=== PATIENT | female | born 1975 | race African-American/Black ===

== ENCOUNTER 2019-01-19 15:37 | Inpatient (IN) | payer BC ==
[2019-01-19 17:49] VITALS: BMI 28.9
--- NOTE | 2019-01-19 21:23 | HP ---
COWS - Scale Resting Pulse: 1= [place] 81-100 Sweatin=Flushed/Facial Moisture Restless Observation: 1= Difficult to Sit Still Pupil Size: 1= Pupils >than Normal Bone or Joint Aches: 4=Acute Joint/Muscle Pain Runny Nose/ Eye Tearin= Runny Nose/Eyes GI Upset > 30mins: 3= Vomiting/Diarrhea (diarrhea x 2, vomiting x 1) Tremor Observation: 4= Gross Tremor/Twitching Yawning Observation: 0= None Anxiety or Irritability: 0= None Goose Flesh Skin: 0=Smooth Skin COWS Score: 18 CIWA Score Nausea/Vomitin Muscle Tremors: 4-Moderate,w/Arms Extend Anxiety: 3 Agitation: 3 Paroxysmal Sweats: 2 Orientation: 2-Disoriented Date<2 days Tacttile Disturbances: 0-None Auditory Disturbances: 0-None Visual Disturbances: 0-None Headache: 3-Moderate CIWA-Ar Total Score: 19 - Admission Criteria OASAS Guidelines: Admission for Medically Managed Detox: Requires at least one of the followin. CIWA greater than 12 2. Seizures within the past 24 hours 3. Delirium tremens within the past 24 hours 4. Hallucinations within the past 24 hours 5. Acute intervention needed for co occurring medical disorder 6. Acute intervention needed for co occurring psychiatric disorder 7. Severe withdrawal that cannot be handled at a lower level of care (continued vomiting, continued diarrhea, abnormal vital signs) requiring intravenous medication and/or fluids 8. Admission ROS [facility] Chief Complaint: Heroin and alcohol withdrawal symptoms Allergies/Adverse Reactions: Allergies Allergy/AdvReac Type Severity Reaction Status Date / Time azithromycin AdvReac Severe Verified 01/19/19 21:23 History of Present Illness: 43 years old female with a long history of heroin and alcohol dependence is seeking admission to detox. Patient reports that her last detox was at [facility] and reports insignificant period of sobriety. She has medical history of hypertension and Asthma. She denies suicidal ideation at this time. Exam Limitations: No Limitations - Ebola screening Have you traveled outside of the country in the last 21 days: No (N) Have you had contact with anyone from an Ebola affected area: No Have you been sick,other than usual withdrawal symptoms: No Do you have a fever: No - Review of Systems Constitutional: Chills, Loss of Appetite, Malaise, Night Sweats, Changes in sleep EENT: reports: No Symptoms Reported, Blurred Vision, Sinus Pressure Respiratory: reports: No Symptoms reported Cardiac: reports: No Symptoms Reported GI: reports: Diarrhea, Nausea, Poor Appetite, Poor Fluid Intake, Vomiting, Abdominal cramping : reports: No Symptoms Reported Musculoskeletal: reports: Back Pain, Muscle Pain Integumentary: reports: Dryness, Flushing Neuro: reports: Headache, Tingling, Tremors Endocrine: reports: No Symptoms Reported Hematology: reports: No Symptoms Reported Psychiatric: reports: Anxious, Depressed Other Systems: Reviewed and Negative Patient History - Patient Medical History Hx Anemia: No Hx Asthma: Yes (Albuterol) Hx Chronic Obstructive Pulmonary Disease (COPD): No Hx Cancer: No Hx Cardiac Disorders: No Hx Congestive Heart Failure: No Hx Hypertension: Yes (Enalapril) Hx Hypercholesterolemia: No Hx Pacemaker: No HX Cerebrovascular Accident: No Hx Seizures: No Hx Dementia: No Hx Diabetes: No Hx Gastrointestinal Disorders: No Hx Liver Disease: No Hx Genitourinary Disorders: No Hx Sexually Transmitted Disorders: No Hx Renal Disease (ESRD): No Hx Thyroid Disease: No Hx Human Immunodeficiency Virus (HIV): No (Negative 2018) Hx Hepatitis C: No Hx Depression: Yes (Not on medication) Hx Suicide Attempt: No (Denies suicidal ideation at this time) Hx Bipolar Disorder: Yes (Zoloft) Other Medical History: Anxiety-Xanax - Patient Surgical History Past Surgical History: No Hx Orthopedic Surgery: Yes (RIGHT ANKLE FX 2002) - PPD History Previous Implant?: Yes Documented Results: Negative w/o proof Implanted On Prior [facility] Admission?: No PPD to be Administered?: Yes - Reproductive History Patient is a Female of Child Bearing Age (11 -55 yrs old): Yes LMP comment: A YEAR AGO. MENOPAUSAL Patient : No - Smoking Cessation Smoking history: Current every day smoker Have you smoked in the past 12 months: Yes Aproximately how many cigarettes per day: 30 Hx Chewing Tobacco Use: No Initiated information on smoking cessation: Yes 'Breaking Loose' booklet given: 01/19/19 - Substance & Tx. History Hx Alcohol Use: Yes Hx Substance Use: Yes Substance Use Type: Alcohol, Cocaine, Heroin, Marijuana, Opiates Hx Substance Use Treatment: Yes ([facility]) - Substances abused Alcohol Substance route: Oral Frequency: Daily Amount used: 250oz vodka Age of first use: 14 Date of last use: 01/19/19 Alprazolam (Xanax) Substance route: Oral Frequency: Daily Amount used: 4/2mg Age of first use: 31 Date of last use: 01/26/19 Heroin Substance route: Inhalation Frequency: Daily Amount used: 3 BUNDLES Age of first use: 33 Date of last use: 01/19/19 Family Disease History - Family Disease History Family Disease History: Diabetes: Grandparent, Other: Father (TB) Admission Physical Exam [facility] - Vital Signs Vital Signs: Vital Signs - 24 hr 01/19/19 17:30 Temperature 98.7 F Pulse Rate 89 Respiratory 18 Rate Blood Pressure 151/96 - Physical General Appearance: Yes: Severe Distress, Tremorous, Irritable, Sweating, Anxious HEENTM: Yes: Within Normal Limits Respiratory: Yes: Within Normal Limits, Lungs Clear, Normal Breath Sounds, No Respiratory Distress Neck: Yes: Supple Breast: Yes: Breast Exam Deferred Cardiology: Yes: Regular Rhythm, Tachycardia Abdominal: Yes: Normal Bowel Sounds Genitourinary: Yes: Within Normal Limits Back: Yes: Normal Inspection Musculoskeletal: Yes: Back pain, Muscle Pain, Muscle weakness Extremities: Yes: Tremors Neurological: Yes: Within Normal Limits Integumentary: Yes: Warm, Pale Lymphatic: Yes: Within Normal Limits - Diagnostic (1) Alcohol dependence with uncomplicated withdrawal Current Visit: Yes Status: Acute (2) Cocaine dependence with withdrawal Current Visit: Yes Status: Chronic (3) Opioid dependence with withdrawal Current Visit: Yes Status: Chronic (4) Hypertension Current Visit: Yes Status: Chronic Qualifiers: Hypertension type: essential hypertension Qualified Code(s): I10 - Essential (primary) hypertension (5) Depression Current Visit: Yes Status: Chronic Qualifiers: Depression Type: unspecified Qualified Code(s): F32.9 - Major depressive disorder, single episode, unspecified (6) Anxiety Current Visit: Yes Status: Chronic Cleared for Admission [facility] - Detox or Rehab [facility] Level of Care: Medically Managed Detox Regimen/Protocol: Methadone/Librium Breathalyzer - Breathalyzer Breathalyzer: 0.047 Urine Drug Screen - Test Device Lot number: [id number] Expiration date: 10/01/20 - Control Is test valid?: Yes - Results Drug screen NEGATIVE: No Urine drug screen results: THC-Marijuana, NARESH-Cocaine, MOP-Opiates, MTD- Methadone, BZO-Benzodiazepines Inpatient Rehab Admission - Rehab Decision to Admit Inpatient rehab admission?: No
[2019-01-19] MEDS ORDERED: hydrOXYzine PAMOATE 25 MG CAPSULE (FP) PO PRN (21:40)
[2019-01-19] MEDS ORDERED: MENTHOL/PHENOL 1 EACH UD MM PRN (21:40)
[2019-01-19] MEDS ORDERED: MAGNESIUM HYDROX 2400MG/30ML ORAL SUSPENSION 30 ML CUP PO PRN (21:40)
[2019-01-19] MEDS ORDERED: MAGNESIUM CITRATE 300 ML BOTTLE PO PRN (21:40)
[2019-01-19] MEDS ORDERED: NICOTINE POLACRILEX 2 MG GUM BUC PRN (21:40)
[2019-01-19] MEDS ORDERED: chlordiazePOXIDE HCL 25 MG CAPSULE PO PRN (21:40)
[2019-01-19] MEDS ORDERED: cloNIDine HCL 0.1 MG TABLET PO PRN (21:40)
[2019-01-19] MEDS ORDERED: BISMUTH SUBSALICYLATE 524 MG/30 ML UD PO PRN (21:40)
[2019-01-19] MEDS ORDERED: ACETAMINOPHEN 325 MG TABLET (FP) PO PRN ×2 (21:40)
[2019-01-19] MEDS ORDERED: MAG HYDROX/AL HYDROX/SIMETH 30 ML UNIT-DOSE CUP PO PRN (21:40)
[2019-01-19] MEDS ORDERED: METHADONE HCL 10 MG TABLET (FOR DETOX USE ONLY) PO ONE (23:00)
[2019-01-19] MEDS: chlordiazePOXIDE HCL 25 MG CAPSULE PO SCH (23:12)
[2019-01-19] MEDS: THIAMINE HCL 100 MG TABLET (FP) PO SCH (23:12)
[2019-01-20] MEDS: chlordiazePOXIDE HCL 25 MG CAPSULE PO SCH ×4 (06:10→22:33)
[2019-01-20] MEDS ORDERED: METHADONE HCL 10 MG TABLET (FOR DETOX USE ONLY) PO ONE (10:00)
[2019-01-20] MEDS ORDERED: ENALAPRIL MALEATE 10 MG TABLET (FP) PO SCH (10:00)
[2019-01-20] MEDS ORDERED: ALBUTEROL SO4 8 GM HFA INHALER IH SCH (10:00)
[2019-01-20] MEDS: NICOTINE 21 MG/24 HOURS TOPICAL PATCH TD SCH (10:15)
[2019-01-20] MEDS: PRENATAL VITAMINS W/ FOLIC ACID TABLET (FP) PO SCH (10:15)
--- NOTE | 2019-01-20 10:18 | EKG ---
Test Reason : Blood Pressure : / mmHG Vent. Rate : 071 BPM Atrial Rate : 071 BPM P-R Int : 158 ms QRS Dur : 102 ms QT Int : 438 ms P-R-T Axes : 070 -31 000 degrees QTc Int : 475 ms NORMAL SINUS RHYTHM LEFT AXIS DEVIATION MINIMAL VOLTAGE CRITERIA FOR LVH, MAY BE NORMAL VARIANT ABNORMAL ECG NO PREVIOUS ECGS AVAILABLE Confirmed by CATHLEEN WERNER MD ([id number]) on 01/20/2019 10:18:19 AM Referred By: Confirmed By:CATHLEEN WERNER MD
[2019-01-20] MEDS: IBUPROFEN 400 MG TABLET (FP) PO PRN ×3 (10:19→22:32)
[2019-01-20 10:30] LABS: HEMATOCRIT 34.3 % (32.4-45.2); HEMOGLOBIN 11.5 GM/dL (10.7-15.3); MCH 34.5 pg (25.7-33.7); MCHC 33.4 g/dl (32.0-36.0); MEAN CELL VOLUME 103.1 fl (80-96); MEAN PLT VOLUME 7.2 fl (7.5-11.1); PLATELET COUNT 295 K/MM3 (134-434); RBC 3.32 M/mm3 (3.60-5.2); RDW 12.3 % (11.6-15.6); WHITE BLOOD COUNT 3.8 K/mm3 (4.0-10.0)
[2019-01-20 10:36] LABS: ALBUMIN 3.4 g/dl (3.4-5.0); BILIRUBIN,TOTAL 0.5 mg/dL (0.2-1); CALCIUM 9.6 mg/dL (8.5-10.1); CREATININE 0.5 mg/dL (0.55-1.3); POTASSIUM 4.3 mmol/L (3.5-5.1); TOT PROT 6.6 g/dl (6.4-8.2)
[2019-01-20] MEDS: ENALAPRIL MALEATE PO SCH (10:53)
--- NOTE | 2019-01-20 12:22 | PN ---
S CIWA - CIWA Score Muscle Tremors: 3 Anxiety: 2 Agitation: 0-Normal Activity Paroxysmal Sweats: 2 Orientation: 0-Oriented Tacttile Disturbances: 1-Very Mild Itch/Numbness Auditory Disturbances: 0-None Visual Disturbances: 2-Mild Sensitivity Headache: 0-None Present S COWS - Scale Resting Pulse: 0= [place] 80 or Below Sweatin= Chills/Flushing Restless Observation: 0= Sits Still Pupil Size: 0= Normal to Room Light Bone or Joint Aches: 1= Mild Discomfort Runny Nose/ Eye Tearin= None GI Upset > 30mins: 1= Stomach Cramp Tremor Observation of Outstretched Hands: 2= Slight Tremor Visible Yawning Observation: 1= 1-2x During Session Anxiety or Irritability: 2=Irritable/Anxious Goose Flesh Skin: 3=Piloe[place] COWS Score: 11 S Progress Note (SOAP) Subjective: Tremors, Body Aches, H/A, Sweating, Stomach Cramping, Constipation. Objective: PATIENT A & O X 3. IN NO ACUTE DISTRESS. 01/20/19 12:19 Vital Signs Temperature 98.1 F 01/20/19 09:33 Pulse Rate 74 01/20/19 09:33 Respiratory Rate 18 01/20/19 09:33 Blood Pressure 127/81 01/20/19 09:33 O2 Sat by Pulse Oximetry (%) Laboratory Tests 01/20/19 01/20/19 07:00 07:00 WBC 3.8 L RBC 3.32 L Hgb 11.5 Hct 34.3 MCV 103.1 H MCH 34.5 H MCHC 33.4 RDW 12.3 Plt Count 295 MPV 7.2 L Sodium 139 Potassium 4.3 Chloride 105 Carbon Dioxide 32 Anion Gap 3 L BUN 15 Creatinine 0.5 L Est GFR (CKD-EPI)AfAm 138.36 Est GFR (CKD-EPI)NonAf 119.38 Random Glucose 73 L Calcium 9.6 Total Bilirubin 0.5 AST 28 ALT 34 Alkaline Phosphatase 67 Total Protein 6.6 Albumin 3.4 LABS NOTED. RPR RESULT PENDING. 01/20/19 12:21 Assessment: 01/20/19 12:20 WITHDRAWAL SYMPTOMS. Plan: CONTINUE DETOX. INCREASE DAILY PO FLUID / WATER INTAKE. PRN MOM FOR CONSTIPATION.
[2019-01-20] MEDS ORDERED: cloNIDine HCL 0.1 MG TABLET PO ONE (14:51)
[2019-01-20] MEDS: METHOCARBAMOL 500 MG TABLET PO PRN ×2 (16:31→22:32)
--- NOTE | 2019-01-20 17:56 | CONSULT ---
[facility] Psychiatric Consult - Data Date of interview: 01/20/19 Admission source: [facility] Identifying data: First admission to [facility] for this 43 y/o AA female self- referred for detoxification ( benzodiazepines, cocaine, alcohol, cannabis, opiates). examined at [address] [place] [address]. Patient is , a mother of three, domiciled, unemployed and supported on SSI benefits. Substance Abuse History: Confirmed by patient in this interview. Details in current [facility] report as follows : Smoking history: Current every day smoker. Have you smoked in the past 12 months: Yes. Aproximately how many cigarettes per day: 30. Hx Chewing Tobacco Use: No. Initiated information on smoking cessation: Yes. 'Breaking Loose' booklet given: 01/19/19. - Substance & Tx. History. Hx Alcohol Use: Yes. Hx Substance Use: Yes. Substance Use Type: Alcohol, Cocaine, Heroin, Marijuana, Opiates. Hx Substance Use Treatment: Yes ( [facility]). - Substances abused. Alcohol. Substance route: Oral. Frequency: Daily. Amount used: 250oz vodka. Age of first use: 14. Date of last use: 01/19/19. Alprazolam (Xanax). Substance route: Oral. Frequency: Daily. Amount used: 4/2mg. Age of first use: 31. Date of last use: 01/26/19. Heroin. Substance route: Inhalation. Frequency: Daily. Amount used: 3 BUNDLES. Age of first use: 33. Date of last use: 01/19/19 Medical History: Hypertension, bronchial asthma and a distant history of orthosurgery (fracture of right ankle). Psychiatric History: Patient endorses history of " a couple " of psychiatric hospitalizations ([facility] in [facility] + [facility] + other facilities in [place] in [place]). Diagnosed with Bipolar Disorder + ADHD + OCD. Ms Brewster indicates that she has been prescribed sertraline + risperidone. She has also reported chronic non-adherence to OPD care + medications. Patient has recently dropped out of psychiatric follow-up at the [facility] mental health clinic (six weeks ago). Admits to a remote history of suicide attempt (pill-taking) during [facility] after divorce of parents. Physical/Sexual Abuse/Trauma History: Patient denies. Additional Comment: Urine drug screen results: THC-Marijuana, NARESH-Cocaine, MOP- Opiates, MTD-Methadone, BZO-Benzodiazepines. Noted. Mental Status Exam - Mental Status Exam Alert and Oriented to: Time, Place, Person Cognitive Function: Good Patient Appearance: Well Groomed (tattoos on upper extremities) Mood: Anxious, Apprehensive Affect: Appropriate, Mood Congruent Patient Behavior: Fatigued, Appropriate, Cooperative Speech Pattern: Clear Voice Loudness: Normal Thought Process: Goal Oriented Thought Disorder: Not Present Hallucinations: Denies Suicidal Ideation: Denies Homicidal Ideation: Denies Insight/Judgement: Poor Sleep: Fair Appetite: Good Gait/Station: Normal Psychiatric Findings - Problem List ([place] 1, 2,3) (1) Alcohol dependence with uncomplicated withdrawal Current Visit: Yes Status: Acute (2) Cocaine dependence with withdrawal Current Visit: Yes Status: Chronic (3) Opioid dependence with withdrawal Current Visit: Yes Status: Chronic (4) Cannabis dependence Current Visit: Yes Status: Chronic (5) Substance induced mood disorder Current Visit: Yes Status: Acute (6) History of bipolar disorder Current Visit: Yes Status: Chronic (7) Insomnia Current Visit: Yes Status: Chronic (8) Non-compliance Current Visit: Yes Status: Chronic - Initial Treatment Plan Initial Treatment Plan: Psychoeducation. Sleep hygiene. Detoxification. Patient wants to resume sertraline + risperdal. Made aware of side effectss/benefits of both drugs. Including the risk for sexual dysfunction, galactorrhea, gynecomastia, abnormal involuntary movement, dystonias, akathisia, dyskinesias and cardiovascular adverse events. Ms Brewster gave verbal consent to . Zolft 50 mg po daily + risperdal 0.5 mg po bid. Ordered at patient's request. Observation.
[2019-01-20] MEDS: THIAMINE HCL 100 MG TABLET (FP) PO SCH (22:32)
[2019-01-20] MEDS: risperiDONE 0.5 MG TABLET (FP) PO SCH (22:34)
[2019-01-20] MEDS: MELATONIN 5 MG TABLETS PO PRN (22:34)
[2019-01-20] MEDS: ALBUTEROL SO4 8 GM HFA INHALER IH PRN (23:05)
[2019-01-21] MEDS: chlordiazePOXIDE HCL 25 MG CAPSULE PO SCH ×3 (05:59→17:35)
[2019-01-21] MEDS ORDERED: METHADONE HCL 10 MG TABLET (FOR DETOX USE ONLY) PO ONE (10:00)
[2019-01-21] MEDS: METHOCARBAMOL 500 MG TABLET PO PRN (10:06)
[2019-01-21] MEDS: SERTRALINE HCL 50 MG TABLET (FP) PO SCH (10:06)
[2019-01-21] MEDS: ALBUTEROL SO4 8 GM HFA INHALER IH PRN ×2 (10:07→20:58)
[2019-01-21] MEDS: PRENATAL VITAMINS W/ FOLIC ACID TABLET (FP) PO SCH (10:07)
[2019-01-21] MEDS: IBUPROFEN 400 MG TABLET (FP) PO PRN (10:07)
[2019-01-21] MEDS: risperiDONE 0.5 MG TABLET (FP) PO SCH ×2 (10:08→21:01)
[2019-01-21] MEDS: ENALAPRIL MALEATE PO SCH (10:08)
[2019-01-21] MEDS: NICOTINE 21 MG/24 HOURS TOPICAL PATCH TD SCH (11:54)
--- NOTE | 2019-01-21 15:09 | PN ---
[facility] CIWA - CIWA Score Nausea/Vomitin-Mild Nausea/No Vomiting Muscle Tremors: 2 Anxiety: 2 Agitation: 2 Paroxysmal Sweats: 1-Minimal Palms Moist Orientation: 1-Uncertain about Date Tacttile Disturbances: 0-None Auditory Disturbances: 0-None Visual Disturbances: 0-None Headache: 0-None Present CIWA-Ar Total Score: 9 [facility] COWS - Scale Resting Pulse: 1= [place] 81-100 Sweatin= Chills/Flushing Restless Observation: 0= Sits Still Pupil Size: 0= Normal to Room Light Bone or Joint Aches: 1= Mild Discomfort Runny Nose/ Eye Tearin= Nasal Congestion GI Upset > 30mins: 1= Stomach Cramp Tremor Observation of Outstretched Hands: 1= Tremor [place], Not Seen Yawning Observation: 1= 1-2x During Session Anxiety or Irritability: 1=Feels Anxious/Irritable Goose Flesh Skin: 0=Smooth Skin COWS Score: 8 [facility] Progress Note (SOAP) Subjective: long history of asthma wheezing bilaterally rescue pump + nebulizer feeling better with mild chest tightness begin predinson 10 mg po bid Objective: 01/21/19 15:08 Vital Signs Temperature 98.3 F 01/21/19 13:26 Pulse Rate 97 H 01/21/19 13:26 Respiratory Rate 16 01/21/19 13:26 Blood Pressure 131/81 01/21/19 13:26 O2 Sat by Pulse Oximetry (%) Laboratory Last Values WBC 3.8 K/mm3 (4.0-10.0) L 01/20/19 07:00 RBC 3.32 M/mm3 (3.60-5.2) L 01/20/19 07:00 Hgb 11.5 GM/dL (10.7-15.3) 01/20/19 07:00 Hct 34.3 % (32.4-45.2) 01/20/19 07:00 MCV 103.1 fl (80-96) H 01/20/19 07:00 MCH 34.5 pg (25.7-33.7) H 01/20/19 07:00 MCHC 33.4 g/dl (32.0-36.0) 01/20/19 07:00 RDW 12.3 % (11.6-15.6) 01/20/19 07:00 Plt Count 295 K/MM3 (134-434) 01/20/19 07:00 MPV 7.2 fl (7.5-11.1) L 01/20/19 07:00 Sodium 139 mmol/L (136-145) 01/20/19 07:00 Potassium 4.3 mmol/L (3.5-5.1) 01/20/19 07:00 Chloride 105 mmol/L (98-107) 01/20/19 07:00 Carbon Dioxide 32 mmol/L (21-32) 01/20/19 07:00 Anion Gap 3 MMOL/L (8-16) L 01/20/19 07:00 BUN 15 mg/dL (7-18) 01/20/19 07:00 Creatinine 0.5 mg/dL (0.55-1.3) L 01/20/19 07:00 Est GFR (CKD-EPI)AfAm 138.36 01/20/19 07:00 Est GFR (CKD-EPI)NonAf 119.38 01/20/19 07:00 Random Glucose 73 mg/dL (74-106) L 01/20/19 07:00 Calcium 9.6 mg/dL (8.5-10.1) 01/20/19 07:00 Total Bilirubin 0.5 mg/dL (0.2-1) 01/20/19 07:00 AST 28 U/L (15-37) 01/20/19 07:00 ALT 34 U/L (13-61) 01/20/19 07:00 Alkaline Phosphatase 67 U/L (45-117) 01/20/19 07:00 Total Protein 6.6 g/dl (6.4-8.2) 01/20/19 07:00 Albumin 3.4 g/dl (3.4-5.0) 01/20/19 07:00 RPR Titer Nonreactive (NONREACTIVE) 01/20/19 07:00 lab noted Assessment: 01/21/19 15:08 withdrawal sx Plan: continue detox prednison
--- NOTE | 2019-01-21 18:40 | PN ---
S Progress Note Note: Vital Signs Temperature 98.5 F 01/21/19 18:33 Pulse Rate 90 01/21/19 18:33 Respiratory Rate 18 01/21/19 18:33 Blood Pressure 149/88 01/21/19 18:33 O2 Sat by Pulse Oximetry (%) BILATERAL KNEE PAIN D/T OA BENGAY TP BID PRN CONTINUE TO MONITOR
[2019-01-21] MEDS: predniSONE 10 MG TABLET (UD) PO SCH (21:01)
[2019-01-21] MEDS: METHYL SALICYLATE/MENTHOL OINT 30 GM TUBE TP SCH (21:01)
[2019-01-21] MEDS: THIAMINE HCL 100 MG TABLET (FP) PO SCH (21:03)
[2019-01-21] MEDS: MELATONIN 5 MG TABLETS PO PRN (22:18)
[2019-01-21] MEDS: chlordiazePOXIDE HCL 10 MG CAPSULE PO SCH (22:18)
[2019-01-21] MEDS ORDERED: chlordiazePOXIDE HCL 10 MG CAPSULE PO PRN (23:00)
[2019-01-22] MEDS: chlordiazePOXIDE HCL 10 MG CAPSULE PO SCH ×2 (05:32→10:00)
[2019-01-22] MEDS: METHOCARBAMOL 500 MG TABLET PO PRN (05:35)
[2019-01-22] MEDS: IBUPROFEN 400 MG TABLET (FP) PO PRN (05:36)
[2019-01-22 09:15] VITALS: BP 134/91; PULSE 88; TEMP 98
[2019-01-22] MEDS: predniSONE 10 MG TABLET (UD) PO SCH (09:50)
[2019-01-22] MEDS: METHYL SALICYLATE/MENTHOL OINT 30 GM TUBE TP SCH (09:50)
[2019-01-22] MEDS: PRENATAL VITAMINS W/ FOLIC ACID TABLET (FP) PO SCH (09:50)
[2019-01-22] MEDS: SERTRALINE HCL 50 MG TABLET (FP) PO SCH (09:50)
[2019-01-22] MEDS: risperiDONE 0.5 MG TABLET (FP) PO SCH (09:51)
[2019-01-22] MEDS: ENALAPRIL MALEATE PO SCH (09:51)
[2019-01-22] MEDS: NICOTINE 21 MG/24 HOURS TOPICAL PATCH TD SCH (09:52)
[2019-01-22] MEDS ORDERED: METHADONE HCL 10 MG TABLET (FOR DETOX USE ONLY) PO ONE (10:00)
--- NOTE | 2019-01-22 19:07 | PN ---
[facility] CIWA - CIWA Score Nausea/Vomitin-No Nausea/No Vomiting Muscle Tremors: None Anxiety: 0-No Anxiety, at Ease Agitation: 1-Slight > Activity Paroxysmal Sweats: No Perspiration Orientation: 0-Oriented Tacttile Disturbances: 0-None Auditory Disturbances: 0-None Visual Disturbances: 0-None Headache: 0-None Present CIWA-Ar Total Score: 1 [facility] COWS - Scale Resting Pulse: 1= [place] 81-100 Sweatin= No chills or Flushing Restless Observation: 1= Difficult to Sit Still Pupil Size: 0= Normal to Room Light Bone or Joint Aches: 0= None Runny Nose/ Eye Tearin= None GI Upset > 30mins: 0= None Tremor Observation of Outstretched Hands: 0= None Yawning Observation: 0= None Anxiety or Irritability: 0= None Goose Flesh Skin: 0=Smooth Skin COWS Score: 2 [facility] Progress Note (SOAP) Subjective: Patient reports that current Withdrawal / Detox symptoms are minimal and reports that she feels well overall at this time. Objective: PATIENT A & O X 3, OBSERVED AMBULATING ON UNIT UNASSISTED. IN NO ACUTE DISTRESS. 01/22/19 19:05 Vital Signs Temperature 98.0 F 01/22/19 09:15 Pulse Rate 88 01/22/19 09:15 Respiratory Rate 18 01/22/19 09:15 Blood Pressure 134/91 01/22/19 09:15 O2 Sat by Pulse Oximetry (%) Laboratory Tests 01/20/19 01/20/19 01/20/19 07:00 07:00 07:00 WBC 3.8 L RBC 3.32 L Hgb 11.5 Hct 34.3 MCV 103.1 H MCH 34.5 H MCHC 33.4 RDW 12.3 Plt Count 295 MPV 7.2 L Sodium 139 Potassium 4.3 Chloride 105 Carbon Dioxide 32 Anion Gap 3 L BUN 15 Creatinine 0.5 L Est GFR (CKD-EPI)AfAm 138.36 Est GFR (CKD-EPI)NonAf 119.38 Random Glucose 73 L Calcium 9.6 Total Bilirubin 0.5 AST 28 ALT 34 Alkaline Phosphatase 67 Total Protein 6.6 Albumin 3.4 RPR Titer Nonreactive LABS NOTED. Assessment: 01/22/19 19:05 COMPLETION OF DETOX REGIMEN. 01/22/19 19:06 Plan: SINCE PATIENT REPORTS THAT CURRENT WITHDRAWAL / DETOX SYMPTOMS ARE MINIMAL IN DEGREE AND THAT SHE FEELS WELL OVERALL, AT PATIENTS REQUEST, SHE WAS GRANTED AN EARLY DISCHARGE FROM DETOX UNIT TODAY SO THAT SHE MAY LEAVE TO ATTEND TO A FAMILY EMERGENCY.
--- NOTE | 2019-01-22 19:12 | DS ---
[facility] Detox Discharge Summary Admission Date: 01/19/19 Discharge Date: 01/22/19 - History Present History: Alcohol Dependence, Cocaine Dependence, Opioid Dependence Additional Comments: PATIENT REPORTS THAT CURRENT WITHDRAWAL / DETOX SYMPTOMS ARE MINIMAL IN DEGREE AND THAT SHE FEELS WELL OVERALL AT TIME OF DISCHARGE FROM DETOX UNIT. PATIENT GOING HOME TO ATTEND TO URGENT FAMILY EMERGENCY AT THIS TIME. PATIENT WILL CONSIDER [facility] ([place], [place]) FOR LATER TIME AFTER FAMILY ISSUE IS SETTLED. PATIENT ALSO ADVISED TO CONSIDER LOCAL 12-STEP / NA / AA OUTPATIENT SUPPORT GROUP PROGRAM FOR AFTERCARE. PATIENT VERBALIZED UNDERSTANDING OF RECOMMENDATION. PATIENT WAS DISCHARGED FORM DETOX UNIT IN STABLE MEDICAL CONDITION. Pertinent Past History: HTN, Asthma, History Of Depression, History Of Bipolar Disorder, Anxiety. - Physical Exam Results Vital Signs: Vital Signs Temperature 98.0 F 01/22/19 09:15 Pulse Rate 88 01/22/19 09:15 Respiratory Rate 18 01/22/19 09:15 Blood Pressure 134/91 01/22/19 09:15 O2 Sat by Pulse Oximetry (%) Pertinent Admission Physical Exam Findings: WITHDRAWAL SYMPTOMS. Laboratory Tests 01/20/19 01/20/19 01/20/19 07:00 07:00 07:00 WBC 3.8 L RBC 3.32 L Hgb 11.5 Hct 34.3 MCV 103.1 H MCH 34.5 H MCHC 33.4 RDW 12.3 Plt Count 295 MPV 7.2 L Sodium 139 Potassium 4.3 Chloride 105 Carbon Dioxide 32 Anion Gap 3 L BUN 15 Creatinine 0.5 L Est GFR (CKD-EPI)AfAm 138.36 Est GFR (CKD-EPI)NonAf 119.38 Random Glucose 73 L Calcium 9.6 Total Bilirubin 0.5 AST 28 ALT 34 Alkaline Phosphatase 67 Total Protein 6.6 Albumin 3.4 RPR Titer Nonreactive LABS NOTED. - Treatment Hospital Course: Detox Protocol Followed, Detoxed Safely, Responded well, Discharged Condition Good Patient has Accepted a Rehab Referral to: [facility] ([place], [place]) ( ON LATER DATE). - Medication Discharge Medications: Ambulatory Orders Albuterol Sulfate [Albuterol Sulfate Hfa] 8.5 gm IH PRN PRN 01/19/19 Prednisone 10 mg PO BID 01/19/19 Sertraline HCl [Zoloft] 100 mg PO DAILY 01/19/19 Albuterol Sulfate Inhaler - [Ventolin Hfa Inhaler -] 1 - 2 inh PO Q4H PRN #1 inhaler 01/22/19 Enalapril Maleate [Vasotec -] 15 mg PO DAILY 30 Days #30 tablet 01/22/19 - Diagnosis (1) Alcohol dependence with uncomplicated withdrawal Status: Acute (2) Anxiety Status: Chronic (3) Cocaine dependence with withdrawal Status: Chronic (4) Depression Status: Chronic Qualifiers: Depression Type: unspecified Qualified Code(s): F32.9 - Major depressive disorder, single episode, unspecified (5) Hypertension Status: Chronic Qualifiers: Hypertension type: essential hypertension Qualified Code(s): I10 - Essential (primary) hypertension (6) Opioid dependence with withdrawal Status: Chronic - AMA Did Patient Leave Against Medical Advice: No
[2019-01-22] MEDS ORDERED: chlordiazePOXIDE HCL 10 MG CAPSULE PO SCH (23:00)
[2019-01-23] MEDS ORDERED: METHADONE HCL 5 MG TABLET (FOR DETOX USE ONLY) PO ONE (06:00)
== END 2019-01-22 10:43 | disposition home or self-care (01) | DRG 773 ==
LOC: YASAS 15:37 → Y3N 22:02
PROVIDERS: ADMIT Surgery; ATTEND Surgery
PROC: HZ2ZZZZ Detoxification Services for Substance Abuse Treatment (ICD-10-PCS; principal; 2019-01-19)
DX: F10.230 Alcohol dependence with withdrawal, uncomplicated (principal); F11.23 Opioid dependence with withdrawal; F14.20 Cocaine dependence, uncomplicated; F12.20 Cannabis dependence, uncomplicated; F31.9 Bipolar disorder, unspecified; F41.9 Anxiety disorder, unspecified; F19.24 Other psychoactive substance dependence with psychoactive substance-induced mood disorder; I10 Essential (primary) hypertension; M17.0 Bilateral primary osteoarthritis of knee; Z91.19 Patient's noncompliance with other medical treatment and regimen
CPT/HCPCS: 36415; 80053; 85027; 86593; 93005; 93010; J0735

== ENCOUNTER 2019-07-18 12:41 | Inpatient (IN) | payer OTHER ==
[2019-07-18 14:17] VITALS: BMI 32.1
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
[2019-07-18] MEDS ORDERED: MAGNESIUM HYDROX 2400MG/30ML ORAL SUSPENSION 30 ML CUP PO PRN (15:14)
[2019-07-18] MEDS ORDERED: ACETAMINOPHEN 325 MG TABLET (FP) PO PRN (15:14)
[2019-07-18] MEDS ORDERED: MAG HYDROX/AL HYDROX/SIMETH 30 ML UNIT-DOSE CUP PO PRN (15:14)
[2019-07-18] MEDS ORDERED: LORazepam 1 MG TABLET PO PRN (15:14)
[2019-07-18] MEDS ORDERED: ONDANSETRON *ODT* 4 MG TABLET SL PRN (15:14)
[2019-07-18] MEDS ORDERED: MAGNESIUM CITRATE 300 ML BOTTLE PO PRN (15:14)
[2019-07-18] MEDS ORDERED: BISMUTH SUBSALICYLATE 524 MG/30 ML UD PO PRN (15:14)
[2019-07-18] MEDS ORDERED: QUEtiapine FUMARATE 100 MG TABLET (FP) PO PRN (15:14)
[2019-07-18] MEDS ORDERED: MENTHOL/PHENOL 1 EACH UD MM PRN ×2 (15:14)
[2019-07-18] MEDS: LORazepam 2 MG TABLET PO SCH ×2 (16:25→22:01)
[2019-07-18] MEDS: predniSONE 20 MG TABLET (UD) PO SCH (16:25)
[2019-07-18] MEDS: cloNIDine HCL 0.1 MG TABLET PO PRN (16:28)
[2019-07-18] MEDS: NICOTINE 14 MG/24 HOURS TOPICAL PATCH TD SCH (16:28)
[2019-07-18] MEDS: METHOCARBAMOL 500 MG TABLET PO PRN (17:02)
[2019-07-18] MEDS: IBUPROFEN 400 MG TABLET (FP) PO PRN ×2 (17:03→23:47)
[2019-07-18] MEDS: hydrOXYzine PAMOATE 50 MG CAPSULE (FP) PO PRN (18:29)
[2019-07-18] MEDS: ACETAMINOPHEN 325 MG TABLET (FP) PO PRN (21:24)
[2019-07-18] MEDS: THIAMINE HCL 100 MG TABLET (FP) PO SCH (22:01)
[2019-07-18] MEDS: MELATONIN 5 MG TABLETS PO PRN (22:02)
[2019-07-19] MEDS: hydrOXYzine PAMOATE 50 MG CAPSULE (FP) PO PRN ×3 (00:42→19:51)
[2019-07-19] MEDS: METHOCARBAMOL 500 MG TABLET PO PRN ×2 (00:42→19:51)
[2019-07-19] MEDS: LORazepam 2 MG TABLET PO SCH ×2 (05:23→10:12)
[2019-07-19] MEDS: cloNIDine HCL 0.1 MG TABLET PO PRN ×2 (08:50→17:00)
[2019-07-19] MEDS: NICOTINE 14 MG/24 HOURS TOPICAL PATCH TD SCH (10:11)
[2019-07-19] MEDS: ENALAPRIL MALEATE 10 MG TABLET (FP) PO SCH (10:12)
[2019-07-19] MEDS: PRENATAL VITAMINS W/ FOLIC ACID TABLET (FP) PO SCH (10:12)
[2019-07-19] MEDS: predniSONE 20 MG TABLET (UD) PO SCH (10:12)
[2019-07-19] MEDS: NICOTINE POLACRILEX 2 MG GUM BUC PRN (10:14)
--- NOTE | 2019-07-19 11:06 | PN ---
S CIWA - CIWA Score Nausea/Vomitin-Mild Nausea/No Vomiting Muscle Tremors: 3 Anxiety: 4-Mod. Anxious/Guarded Agitation: 2 Paroxysmal Sweats: 2 Orientation: 1-Uncertain about Date (date of week) Tacttile Disturbances: 1-Very Mild Itch/Numbness Auditory Disturbances: 0-None Visual Disturbances: 0-None Headache: 2-Mild CIWA-Ar Total Score: 16 BHS Progress Note (SOAP) Subjective: 43 years old female admitted on 07/18/19 for alcohol and benzo withdrawal sx management treated with ativan detox regimen patient prefers librium detox regimen " I always use librium" "ativan does not work for me" change ativan to librium detox regimen patient reported long history of anxiety taking psychotropic medication psychiatrist referral in placed report G-I distress taking over the counter antiacid medication at home discontinue motrin begin pepcide Objective: 07/19/19 11:05 Vital Signs Temperature 97.9 F 07/19/19 09:14 Pulse Rate 95 H 07/19/19 09:14 Respiratory Rate 18 07/19/19 09:14 Blood Pressure 138/98 07/19/19 09:14 O2 Sat by Pulse Oximetry (%) 07/19/19 11:05 lab pending Assessment: 07/19/19 11:05 alcohol and benzo withdrawal sx Plan: continue librium detox regimen
[2019-07-19] MEDS: FAMOTIDINE 20 MG TABLET PO SCH ×2 (11:55→21:14)
[2019-07-19] MEDS: chlordiazePOXIDE HCL 10 MG CAPSULE PO SCH ×3 (11:55→23:04)
[2019-07-19 12:14] LABS: ALBUMIN 3.6 g/dl (3.4-5.0); BILIRUBIN,TOTAL 0.3 mg/dL (0.2-1); BLOOD UREA NITROGEN 28.2 mg/dL (7-18); CALCIUM 9.5 mg/dL (8.5-10.1); CREATININE 0.8 mg/dL (0.55-1.3); POTASSIUM 4.2 mmol/L (3.5-5.1); TOT PROT 7.2 g/dl (6.4-8.2)
[2019-07-19 12:17] LABS: HEMATOCRIT 37.4 % (32.4-45.2); HEMOGLOBIN 12.4 GM/dL (10.7-15.3); MCH 32.5 pg (25.7-33.7); MCHC 33.2 g/dl (32.0-36.0); MEAN PLT VOLUME 6.7 fl (7.5-11.1); PLATELET COUNT 431 K/MM3 (134-434); RBC 3.81 M/mm3 (3.60-5.2); RDW 13.8 % (11.6-15.6); WHITE BLOOD COUNT 6.6 K/mm3 (4.0-10.0)
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
[2019-07-19] MEDS: ACETAMINOPHEN 325 MG TABLET (FP) PO PRN ×2 (13:42→21:16)
[2019-07-19] MEDS: QUEtiapine FUMARATE 50 MG TABLET PO SCH (13:43)
[2019-07-19] MEDS ORDERED: hydrOXYzine PAMOATE 25 MG CAPSULE (FP) PO ONE (18:00)
--- NOTE | 2019-07-19 19:45 | PN ---
BHS Progress Note Note: Last Vital Signs Temp Pulse Resp BP Pulse Ox 97.3 F L 105 H 20 129/80 07/19/19 17:46 07/19/19 17:46 07/19/19 17:46 07/19/19 17:46 Assessed the pt. on the unit. Pt. c/o rapid heart rate. Pt. alert and oriented x 3. Denies CP. She is reports feeling anxious. Wheezing to lower left lobe. No signs of respiratory distress noted or reported. VS repeated and as follows: 123/83 BP, 97 P, 98.1 T Plan: Vistaril 50mg Albuterol Stat EKG ordered
[2019-07-19] MEDS: ALBUTEROL SO4 8 GM HFA INHALER IH PRN (19:52)
[2019-07-19] MEDS: TOLNAFTATE 1% CREAM 15 GM TUBE TP SCH (21:13)
[2019-07-19] MEDS: DIVALPROEX SODIUM 500 MG TABLET E.C. PO SCH (21:14)
[2019-07-19] MEDS: THIAMINE HCL 100 MG TABLET (FP) PO SCH (21:15)
[2019-07-19] MEDS: MELATONIN 5 MG TABLETS PO PRN (21:15)
[2019-07-19] MEDS ORDERED: QUEtiapine FUMARATE 200 MG TABLET PO SCH (22:00)
[2019-07-20] MEDS: chlordiazePOXIDE HCL 25 MG CAPSULE PO PRN ×3 (00:11→17:04)
[2019-07-20] MEDS: NICOTINE POLACRILEX 2 MG GUM BUC PRN (00:12)
[2019-07-20] MEDS ORDERED: LORazepam 1 MG TABLET PO SCH (05:00)
[2019-07-20] MEDS: cloNIDine HCL 0.1 MG TABLET PO PRN ×2 (06:36→21:17)
[2019-07-20] MEDS: chlordiazePOXIDE HCL 10 MG CAPSULE PO SCH ×3 (06:46→21:14)
[2019-07-20] MEDS: ACETAMINOPHEN 325 MG TABLET (FP) PO PRN ×2 (07:11→17:03)
--- NOTE | 2019-07-20 09:07 | PN ---
BHS CIWA - CIWA Score Nausea/Vomitin-Mild Nausea/No Vomiting Muscle Tremors: 3 Anxiety: 4-Mod. Anxious/Guarded Agitation: 2 Paroxysmal Sweats: 1-Minimal Palms Moist Orientation: 0-Oriented Tacttile Disturbances: 0-None Auditory Disturbances: 0-None Visual Disturbances: 0-None Headache: 2-Mild CIWA-Ar Total Score: 13 BHS Progress Note (SOAP) Subjective: 43 years old female admitted on 07/18/19 for alcohol and benzo withdrawal sx management treated with librium detox regimen patient is
[2019-07-20] MEDS: FAMOTIDINE 20 MG TABLET PO SCH ×2 (10:05→21:14)
[2019-07-20] MEDS: predniSONE 20 MG TABLET (UD) PO SCH (10:07)
[2019-07-20] MEDS: NICOTINE 14 MG/24 HOURS TOPICAL PATCH TD SCH (10:07)
[2019-07-20] MEDS: DIVALPROEX SODIUM 500 MG TABLET E.C. PO SCH ×2 (10:07→21:15)
[2019-07-20] MEDS: PRENATAL VITAMINS W/ FOLIC ACID TABLET (FP) PO SCH (10:08)
[2019-07-20] MEDS: ENALAPRIL MALEATE 10 MG TABLET (FP) PO SCH (10:09)
[2019-07-20] MEDS: QUEtiapine FUMARATE 50 MG TABLET PO SCH (10:09)
[2019-07-20] MEDS: hydrOXYzine PAMOATE 50 MG CAPSULE (FP) PO PRN ×3 (10:10→23:33)
[2019-07-20] MEDS: METHOCARBAMOL 500 MG TABLET PO PRN ×3 (10:10→23:33)
--- NOTE | 2019-07-20 10:45 | EKG ---
Test Reason : Blood Pressure : / mmHG Vent. Rate : 094 BPM Atrial Rate : 094 BPM P-R Int : 144 ms QRS Dur : 098 ms QT Int : 388 ms P-R-T Axes : 071 -40 026 degrees QTc Int : 485 ms NORMAL SINUS RHYTHM POSSIBLE LEFT ATRIAL ENLARGEMENT LEFT AXIS DEVIATION LEFT VENTRICULAR HYPERTROPHY CANNOT RULE OUT SEPTAL INFARCT , AGE UNDETERMINED ABNORMAL ECG Confirmed by MD CHRISSY, PREETHI ([id number]) on 07/20/2019 10:45:22 AM Referred By: Confirmed By:PREETHI LOWE MD
[2019-07-20] MEDS: TOLNAFTATE 1% CREAM 15 GM TUBE TP SCH ×2 (11:09→21:18)
[2019-07-20] MEDS ORDERED: ALBUTEROL SO4 2.5/IPRATROPIUM 0.5 INH SOL 3 ML VIAL.NEB. NEB PRN (11:10)
--- NOTE | 2019-07-20 11:31 | PN ---
S CIWA - CIWA Score Nausea/Vomitin-No Nausea/No Vomiting Muscle Tremors: 1-None Visible, but Guild Anxiety: 3 Agitation: 2 Paroxysmal Sweats: No Perspiration Orientation: 0-Oriented Tacttile Disturbances: 1-Very Mild Itch/Numbness Auditory Disturbances: 0-None Visual Disturbances: 0-None Headache: 2-Mild CIWA-Ar Total Score: 9 BHS Progress Note (SOAP) Subjective: alert,irritable,anxious ,interrupted sleep,mild expiratory wheezing,interrupted sleep Objective: 07/20/19 11:24 Vital Signs Temperature 98.7 F 07/20/19 09:17 Pulse Rate 87 07/20/19 09:17 Respiratory Rate 18 07/20/19 09:17 Blood Pressure 132/88 07/20/19 09:17 O2 Sat by Pulse Oximetry (%) Laboratory Last Values WBC 6.6 K/mm3 (4.0-10.0) 07/19/19 08:15 RBC 3.81 M/mm3 (3.60-5.2) 07/19/19 08:15 Hgb 12.4 GM/dL (10.7-15.3) 07/19/19 08:15 Hct 37.4 % (32.4-45.2) 07/19/19 08:15 MCV 98.0 fl (80-96) H 07/19/19 08:15 MCH 32.5 pg (25.7-33.7) 07/19/19 08:15 MCHC 33.2 g/dl (32.0-36.0) 07/19/19 08:15 RDW 13.8 % (11.6-15.6) D 07/19/19 08:15 Plt Count 431 K/MM3 (134-434) D 07/19/19 08:15 MPV 6.7 fl (7.5-11.1) L 07/19/19 08:15 Sodium 140 mmol/L (136-145) 07/19/19 08:15 Potassium 4.2 mmol/L (3.5-5.1) 07/19/19 08:15 Chloride 106 mmol/L (98-107) 07/19/19 08:15 Carbon Dioxide 29 mmol/L (21-32) 07/19/19 08:15 Anion Gap 5 MMOL/L (8-16) L 07/19/19 08:15 BUN 28.2 mg/dL (7-18) H 07/19/19 08:15 Creatinine 0.8 mg/dL (0.55-1.3) 07/19/19 08:15 Est GFR (CKD-EPI)AfAm 105.39 07/19/19 08:15 Est GFR (CKD-EPI)NonAf 90.93 07/19/19 08:15 Random Glucose 90 mg/dL (74-106) 07/19/19 08:15 Calcium 9.5 mg/dL (8.5-10.1) 07/19/19 08:15 Total Bilirubin 0.3 mg/dL (0.2-1) 07/19/19 08:15 AST 31 U/L (15-37) 07/19/19 08:15 ALT 44 U/L (13-61) 07/19/19 08:15 Alkaline Phosphatase 74 U/L (45-117) 07/19/19 08:15 Total Protein 7.2 g/dl (6.4-8.2) 07/19/19 08:15 Albumin 3.6 g/dl (3.4-5.0) 07/19/19 08:15 POC Urine HCG, Qual Negative 07/18/19 14:30 RPR Titer Nonreactive (NONREACTIVE) 07/19/19 08:15 HIV 1&2 Antibody Screen Negative 07/19/19 08:15 HIV P24 Antigen Negative 07/19/19 08:15 Assessment: 07/20/19 11:27 withdrawal symptom,continue detox librium regimen,duoneb nebulizer,encourage oral fluid,continue albuterol inhaler,prednidone 20 mgs po daily,encourage oral fluid Plan: continue detox,encourage oral fluid,psychiatric reevaluation
--- NOTE | 2019-07-20 15:21 | PN ---
Psychiatric Progress Note Vital Signs: Vital Signs Period Temp Pulse Resp BP Sys/Solo Pulse Ox Last 24 Hr 97.1 F-98.7 F 87-105 18-20 123-134/80-94 Date of Session: 07/20/19 Chief Complaint:: " I want my sleep medications earlier than 10 pm ". HPI: Day 4 of detoxification. Uneventful hospital course. Psychiatric follow-up is requested to address patient's request for a change of medications schedule ( HS medications to be given at 9 pm instead of 10 pm). ROS: Patient is ambulatory. Visible, sociable. Complaint : insomnia. Current Medications: Active Medications Generic Name Dose Route Start Last Admin Trade Name Freq PRN Reason Stop Dose Admin Acetaminophen 650 mg 07/18/19 15:14 07/20/19 07:11 Tylenol - PO 650 mg Q6H PRN Administration PAIN LEVEL 4 - 6 Acetaminophen 650 mg 07/18/19 15:14 Tylenol - PO Q6H PRN FEVER Al Hydroxide/Mg Hydroxide 30 ml 07/18/19 15:14 07/19/19 00:45 Mylanta Oral Suspension - PO 30 ml Q6H PRN Administration DYSPEPSIA Albuterol Sulfate 1 - 2 puff 07/18/19 15:18 07/19/19 19:52 Ventolin Hfa Inhaler - IH 1 puff Q4H PRN Administration SHORT OF BREATH/WHEEZING Albuterol/Ipratropium 1 amp 07/20/19 11:10 Duoneb - NEB Q6H PRN SHORTNESS OF BREATH Bismuth Subsalicylate 524 mg 07/18/19 15:14 Pepto-Bismol - PO Q1H PRN DIARRHEA Chlordiazepoxide HCl 10 mg 07/22/19 05:00 Librium - PO 07/22/19 05:01 ONCE ONE Chlordiazepoxide HCl 10 mg 07/21/19 05:00 Librium - PO 07/21/19 17:01 Q12H DARIN Chlordiazepoxide HCl 10 mg 07/20/19 05:00 07/20/19 13:25 Librium - PO 07/20/19 21:01 10 mg Q8H DARIN Administration Chlordiazepoxide HCl 25 mg 07/19/19 10:21 07/20/19 06:36 Librium - PO 07/20/19 23:59 25 mg Q4H PRN Administration WITHDRAWAL(CONT SUBST) Chlordiazepoxide HCl 10 mg 07/21/19 00:01 Librium - PO 07/21/19 23:59 Q6H PRN WITHDRAWAL(CONT SUBST) Clonidine 0.1 mg 07/18/19 15:22 07/20/19 06:36 Catapres - PO 0.1 mg BID PRN Administration WITHDRAWAL(CONT SUBST) Divalproex Sodium 500 mg 07/19/19 22:00 07/20/19 10:07 Depakote - PO 500 mg BID DARIN Administration Enalapril Maleate 15 mg 07/19/19 10:00 07/20/19 10:09 Vasotec - PO 15 mg DAILY DARIN Administration Eucalyptus/Menthol/Phenol/Sorbitol 1 each 07/18/19 15:14 Cepastat Lozenge - MM 07/24/19 15:15 Q4H PRN SORE THROAT Eucalyptus/Menthol/Phenol/Sorbitol 1 each 07/18/19 15:14 Cepastat Lozenge - MM Q4H PRN SORE THROAT Famotidine 20 mg 07/19/19 12:00 07/20/19 10:05 Pepcid - PO 20 mg BID DARIN Administration Hydroxyzine Pamoate 50 mg 07/18/19 15:14 07/20/19 10:10 Vistaril - PO 07/24/19 15:16 50 mg Q6H PRN Administration For Anxiety Magnesium Citrate 300 ml 07/18/19 15:14 Citroma - PO Q48H PRN CONSTIPATION Magnesium Hydroxide 30 ml 07/18/19 15:14 Milk Of Magnesia - PO PRN PRN CONSTIPATION Melatonin 5 mg 07/18/19 15:14 07/19/19 21:15 Melatonin PO 5 mg HS PRN Administration INSOMNIA Methocarbamol 500 mg 07/18/19 15:14 07/20/19 10:10 Robaxin - PO 07/24/19 15:15 500 mg Q6H PRN Administration MUSCLE SPASMS Nicotine 14 mg 07/18/19 15:30 07/20/19 10:07 Nicoderm Patch - TD Not Given DAILY DARIN Nicotine Polacrilex 2 mg 07/18/19 15:14 07/20/19 00:12 Nicorette Gum - BUC 2 mg Q2H PRN Administration NICOTINE REPLACEMENT RX Ondansetron HCl 4 mg 07/18/19 15:14 Zofran Odt - SL 07/24/19 15:17 Q12H PRN Nausea/Vomiting Prednisone 20 mg 07/18/19 15:30 07/20/19 10:07 Deltasone - PO 07/21/19 23:59 20 mg DAILY DARIN Administration Multivit/Folic Acid/Iron 1 tab 07/19/19 10:00 07/20/19 10:08 Vitamins (Sjr) - PO 1 tab DAILY DARIN Administration Quetiapine Fumarate 50 mg 07/19/19 14:00 07/20/19 10:09 Seroquel - PO 50 mg DAILY DARIN Administration Quetiapine Fumarate 200 mg 07/20/19 21:00 Seroquel - PO HS@2100 DARIN Suvorexant 5 mg 07/20/19 22:00 Belsomra PO 07/20/19 22:01 HS ONE Suvorexant 5 mg 07/20/19 21:00 Belsomra PO HS@2100 PRN INSOMNIA Thiamine HCl 100 mg 07/18/19 22:00 07/19/19 21:15 Vitamin B1 - PO 100 mg HS DARIN Administration Tolnaftate 1 applic 07/19/19 22:00 07/20/19 11:09 Tinactin 1% Cream - TP Not Given BID DARIN Medication(s) Change(s): None. Belsomra 5 mg po hs prn (now ordered for 9 pm) + seroquel 200 mg po hs (now ordered for 9 pm). Current Side Effect: No Lab tests ordered: No Lab tests reviewed: Yes Provider note:: Chart reviewed. Multidisciplinary progress notes are appreciated. Patient seen. Medications discussed. See Medications changes section for details. Patient is receptive to teaching. Doing well. Stable mental status. See MSE report for details. Umremarkable hospital course. Total face to face time:: 25 Mental Status Exam - Mental Status Exam Alert and Oriented to: Time, Place, Person Cognitive Function: Good Patient Appearance: Well Groomed Mood: Anxious, Apprehensive Affect: Mood Congruent Patient Behavior: Cooperative Speech Pattern: Clear, Appropriate Voice Loudness: Normal Thought Process: Goal Oriented Thought Disorder: Not Present Hallucinations: Denies Suicidal Ideation: Denies Homicidal Ideation: Denies Insight/Judgement: Poor Sleep: Poorly, Difficulty falling asleep Appetite: Good Gait/Station: Normal Psychiatric Treatment Plan - Problem List (1) Alcohol dependence with uncomplicated withdrawal Current Visit: Yes (2) Opioid dependence with withdrawal Current Visit: Yes (3) Benzodiazepine dependence Current Visit: Yes (4) Cocaine dependence Current Visit: Yes (5) Nicotine dependence Current Visit: Yes (6) History of bipolar disorder Current Visit: Yes (7) Substance induced mood disorder Current Visit: Yes (8) Insomnia Current Visit: Yes Qualifiers: Insomnia type: unspecified Qualified Code(s): G47.00 - Insomnia, unspecified (9) Non-compliance Current Visit: Yes
[2019-07-20] MEDS: SUVOREXANT 5 MG TABLET PO PRN (21:12)
[2019-07-20] MEDS: QUEtiapine FUMARATE 200 MG TABLET PO SCH (21:15)
[2019-07-20] MEDS ORDERED: SUVOREXANT 5 MG TABLET PO ONE (22:00)
[2019-07-20] MEDS: THIAMINE HCL 100 MG TABLET (FP) PO SCH (22:16)
[2019-07-21] MEDS ORDERED: LORazepam 0.5 MG TABLET PO PRN
[2019-07-21] MEDS ORDERED: LORazepam 0.5 MG TABLET PO SCH (05:00)
[2019-07-21] MEDS: chlordiazePOXIDE HCL 10 MG CAPSULE PO SCH ×2 (06:49→17:16)
[2019-07-21] MEDS: chlordiazePOXIDE HCL 10 MG CAPSULE PO PRN ×2 (07:39→13:44)
[2019-07-21] MEDS: METHOCARBAMOL 500 MG TABLET PO PRN ×3 (07:39→21:22)
[2019-07-21] MEDS: QUEtiapine FUMARATE 50 MG TABLET PO SCH (09:13)
[2019-07-21] MEDS: DIVALPROEX SODIUM 500 MG TABLET E.C. PO SCH ×2 (09:13→21:23)
[2019-07-21] MEDS: ENALAPRIL MALEATE 10 MG TABLET (FP) PO SCH (09:13)
[2019-07-21] MEDS: FAMOTIDINE 20 MG TABLET PO SCH ×2 (09:13→21:22)
[2019-07-21] MEDS: cloNIDine HCL 0.1 MG TABLET PO PRN ×2 (09:13→17:16)
[2019-07-21] MEDS: predniSONE 20 MG TABLET (UD) PO SCH (09:13)
[2019-07-21] MEDS: PRENATAL VITAMINS W/ FOLIC ACID TABLET (FP) PO SCH (09:14)
[2019-07-21] MEDS: TOLNAFTATE 1% CREAM 15 GM TUBE TP SCH ×2 (09:14→21:23)
[2019-07-21] MEDS: NICOTINE 14 MG/24 HOURS TOPICAL PATCH TD SCH (09:14)
[2019-07-21] MEDS: ACETAMINOPHEN 325 MG TABLET (FP) PO PRN ×2 (09:15→17:16)
[2019-07-21] MEDS: NICOTINE POLACRILEX 2 MG GUM BUC PRN (09:16)
[2019-07-21] MEDS: hydrOXYzine PAMOATE 50 MG CAPSULE (FP) PO PRN ×3 (09:16→21:23)
[2019-07-21] MEDS: ALBUTEROL SO4 8 GM HFA INHALER IH PRN (10:45)
--- NOTE | 2019-07-21 12:50 | PN ---
S CIWA - CIWA Score Nausea/Vomitin-Mild Nausea/No Vomiting Muscle Tremors: 1-None Visible, but [place] Anxiety: 2 Agitation: 2 Paroxysmal Sweats: No Perspiration Orientation: 0-Oriented Tacttile Disturbances: 1-Very Mild Itch/Numbness Auditory Disturbances: 0-None Visual Disturbances: 0-None Headache: 1-Very Mild CIWA-Ar Total Score: 8 BHS Progress Note (SOAP) Subjective: alert,irritable,anxious,interrupted sleep, Objective: 07/21/19 12:48 Vital Signs Temperature 97.8 F 07/21/19 09:17 Pulse Rate 106 H 07/21/19 09:17 Respiratory Rate 0 L 07/21/19 09:17 Blood Pressure 131/87 07/21/19 09:17 O2 Sat by Pulse Oximetry (%) Assessment: 07/21/19 12:48 withdrawal symptom Plan: continue detox librium regimen,vistaril 50 mgs po prn q 6hrs for anxiery, discharge in am
[2019-07-21] MEDS: SUVOREXANT 5 MG TABLET PO PRN (21:22)
[2019-07-21] MEDS: THIAMINE HCL 100 MG TABLET (FP) PO SCH (21:22)
[2019-07-21] MEDS: QUEtiapine FUMARATE 200 MG TABLET PO SCH (21:23)
[2019-07-21] MEDS: MELATONIN 5 MG TABLETS PO PRN (21:23)
[2019-07-22] MEDS: ACETAMINOPHEN 325 MG TABLET (FP) PO PRN (02:26)
[2019-07-22] MEDS ORDERED: LORazepam 0.5 MG TABLET PO ONE (05:00)
[2019-07-22] MEDS ORDERED: chlordiazePOXIDE HCL 10 MG CAPSULE PO ONE (05:00)
[2019-07-22] MEDS: METHOCARBAMOL 500 MG TABLET PO PRN (05:48)
[2019-07-22] MEDS: hydrOXYzine PAMOATE 50 MG CAPSULE (FP) PO PRN (05:48)
[2019-07-22] MEDS: ALBUTEROL SO4 8 GM HFA INHALER IH PRN (07:25)
[2019-07-22 09:06] VITALS: BP 114/60; PULSE 77; TEMP 96.9
[2019-07-22] MEDS: ENALAPRIL MALEATE 10 MG TABLET (FP) PO SCH (09:07)
[2019-07-22] MEDS: PRENATAL VITAMINS W/ FOLIC ACID TABLET (FP) PO SCH (09:07)
[2019-07-22] MEDS: DIVALPROEX SODIUM 500 MG TABLET E.C. PO SCH (09:08)
[2019-07-22] MEDS: FAMOTIDINE 20 MG TABLET PO SCH (09:08)
[2019-07-22] MEDS: QUEtiapine FUMARATE 50 MG TABLET PO SCH (09:08)
[2019-07-22] MEDS: TOLNAFTATE 1% CREAM 15 GM TUBE TP SCH (09:10)
[2019-07-22] MEDS: NICOTINE 14 MG/24 HOURS TOPICAL PATCH TD SCH (09:10)
[2019-07-22] MEDS: NICOTINE POLACRILEX 2 MG GUM BUC PRN (09:15)
--- NOTE | 2019-07-22 12:56 | DS ---
[facility] Detox Discharge Summary Admission Date: 07/18/19 Discharge Date: 07/22/19 - History Present History: Alcohol Dependence, Sedative Dependence Additional Comments: 43 YEARS OLD FEMALE ADMITTED ON 07/18/17 FOR ALCOHOL AND BENZO WITHDRAWAL SX MANAGEMETN TREATED WITH LIBRIUM DETOX REGIMEN PATIENT IS ALERT ORIENTED X 3 CARDIAC S1S2 REGULAR RATE RHYTHM RESPIRATORY CLEAR LUNG BILATERALLY ON AUSCULTATION ABDOMEN SOFT ROUND OBESE NO REBOUND TENDERNESS Pertinent Past History: PATIENT PREFERS TO GO HOME AND AGREES TO CONSIDER [facility] FOR REHAB - Physical Exam Results Vital Signs: Vital Signs Temperature 96.9 F L 07/22/19 09:05 Pulse Rate 77 07/22/19 09:05 Respiratory Rate 18 07/22/19 09:05 Blood Pressure 114/60 07/22/19 09:05 O2 Sat by Pulse Oximetry (%) Pertinent Admission Physical Exam Findings: ALCOHOL AND BENZO WITHDRAWAL SX Laboratory Last Values WBC 6.6 K/mm3 (4.0-10.0) 07/19/19 08:15 RBC 3.81 M/mm3 (3.60-5.2) 07/19/19 08:15 Hgb 12.4 GM/dL (10.7-15.3) 07/19/19 08:15 Hct 37.4 % (32.4-45.2) 07/19/19 08:15 MCV 98.0 fl (80-96) H 07/19/19 08:15 MCH 32.5 pg (25.7-33.7) 07/19/19 08:15 MCHC 33.2 g/dl (32.0-36.0) 07/19/19 08:15 RDW 13.8 % (11.6-15.6) D 07/19/19 08:15 Plt Count 431 K/MM3 (134-434) D 07/19/19 08:15 MPV 6.7 fl (7.5-11.1) L 07/19/19 08:15 Sodium 140 mmol/L (136-145) 07/19/19 08:15 Potassium 4.2 mmol/L (3.5-5.1) 07/19/19 08:15 Chloride 106 mmol/L (98-107) 07/19/19 08:15 Carbon Dioxide 29 mmol/L (21-32) 07/19/19 08:15 Anion Gap 5 MMOL/L (8-16) L 07/19/19 08:15 BUN 28.2 mg/dL (7-18) H 07/19/19 08:15 Creatinine 0.8 mg/dL (0.55-1.3) 07/19/19 08:15 Est GFR (CKD-EPI)AfAm 105.39 07/19/19 08:15 Est GFR (CKD-EPI)NonAf 90.93 07/19/19 08:15 Random Glucose 90 mg/dL (74-106) 07/19/19 08:15 Calcium 9.5 mg/dL (8.5-10.1) 07/19/19 08:15 Total Bilirubin 0.3 mg/dL (0.2-1) 07/19/19 08:15 AST 31 U/L (15-37) 07/19/19 08:15 ALT 44 U/L (13-61) 07/19/19 08:15 Alkaline Phosphatase 74 U/L (45-117) 07/19/19 08:15 Total Protein 7.2 g/dl (6.4-8.2) 07/19/19 08:15 Albumin 3.6 g/dl (3.4-5.0) 07/19/19 08:15 POC Urine HCG, Qual Negative 07/18/19 14:30 RPR Titer Nonreactive (NONREACTIVE) 07/19/19 08:15 HIV 1&2 Antibody Screen Negative 07/19/19 08:15 HIV P24 Antigen Negative 07/19/19 08:15 LAB NOTED - Treatment Hospital Course: Detox Protocol Followed, Detoxed Safely, Responded well, Discharged Condition Good, Rehab Referral Accepted Patient has Accepted a Rehab Referral to: [facility] - Medication Discharge Medications: Ambulatory Orders Albuterol Sulfate [Albuterol Sulfate Hfa] 8.5 gm IH PRN PRN 01/19/19 Prednisone 10 mg PO BID 01/19/19 Sertraline HCl [Zoloft] 100 mg PO DAILY 01/19/19 Albuterol Sulfate Inhaler - [Ventolin HFA Inhaler -] 1 - 2 inh PO Q4H PRN #1 inhaler 01/22/19 Enalapril Maleate [Vasotec -] 15 mg PO DAILY 30 Days #30 tablet 01/22/19 - Diagnosis (1) Alcohol dependence with uncomplicated withdrawal Status: Acute (2) Benzodiazepine dependence Status: Acute (3) Hypertension Status: Chronic Qualifiers: Hypertension type: essential hypertension Qualified Code(s): I10 - Essential (primary) hypertension (4) Nicotine dependence Status: Acute Qualifiers: Nicotine product type: cigarettes Substance use status: in withdrawal Qualified Code(s): F17.213 - Nicotine dependence, cigarettes, with withdrawal (5) Substance induced mood disorder Status: Suspected - AMA Did Patient Leave Against Medical Advice: No CIWA Score - CIWA Score Nausea/Vomitin-No Nausea/No Vomiting Muscle Tremors: 1-None Visible, but [place] Anxiety: 1-Mildly Anxious Agitation: 1-Slight > Activity Paroxysmal Sweats: No Perspiration Orientation: 0-Oriented Tacttile Disturbances: 0-None Auditory Disturbances: 0-None Visual Disturbances: 0-None Headache: 1-Very Mild CIWA-Ar Total Score: 4
--- NOTE | 2019-07-23 19:39 | PN ---
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 Chart reviewed. Patient got discharged on 07/22/19. As per progress notes (nursing + medical providers). Ms Brewster had initially agreed to enter [facility]. As per records, the patient had instead decided to go home. Left without scripts.
== END 2019-07-22 09:16 | disposition home or self-care (01) | DRG 773 ==
LOC: YASAS 12:41 → Y3N 15:29
PROVIDERS: ADMIT Allergy & Immunology; ATTEND Allergy & Immunology
PROC: HZ2ZZZZ Detoxification Services for Substance Abuse Treatment (ICD-10-PCS; principal; 2019-07-18)
DX: F10.230 Alcohol dependence with withdrawal, uncomplicated (principal); F11.23 Opioid dependence with withdrawal; F13.230 Sedative, hypnotic or anxiolytic dependence with withdrawal, uncomplicated; F14.20 Cocaine dependence, uncomplicated; F17.210 Nicotine dependence, cigarettes, uncomplicated; F31.9 Bipolar disorder, unspecified; F19.24 Other psychoactive substance dependence with psychoactive substance-induced mood disorder; F41.9 Anxiety disorder, unspecified; G47.00 Insomnia, unspecified; I10 Essential (primary) hypertension; J45.41 Moderate persistent asthma with (acute) exacerbation; Z86.69 Personal history of other diseases of the nervous system and sense organs; Z88.1 Allergy status to other antibiotic agents; Z91.5 Personal history of self-harm; Z59.0 Homelessness; Z91.19 Patient's noncompliance with other medical treatment and regimen
CPT/HCPCS: 36415; 80053; 81025; 85027; 86593; 87389; 93005; 93010; J0735